=== PATIENT | female | born 1945 | race Caucasian/White ===

== ENCOUNTER → 2017-09-01 | Outpatient (CLI) | payer MEDICARE, OTHER ==
[~2017-09-01] MED LIST: ALEN70TA42 PO; ASTELIN; ATR10 PO; AUG250L PO; AZEL137S8 NS; CALC-965 PO; CALC3.7S6 NS; CALC600T72 PO; CELE-1 PO; CELE50CA2 PO; CHOL500026 PO; CIPR-326 PO; DENOSUMAB 60 MG/1 ML SYR SUBQ ONE; DIA5 PO; DOC100 PO; ESCI20TA38 PO; ESCI5TAB10 PO; EZE10 PO; FLUT16SP20 NS; GAB300 PO; HYD2 PO; HYDR2TAB4 PO; INDO50CA92 PO; LANS30CA70 PO; LANS30TA12 PO; LEV125 PO; LEVO125T77 PO; LEVO150T72 PO; LIO5 PO; LOM PO; LOR5 PO; LOR5/325 PO; MULT1CAP41 PO; NIAC500C17 PO; ONDA4TAB PO; OXY10 PO; PAN20 PO; PRILOSEC; PYPLUS PO; SIMV-42 PO; TROS20TA5 PO; UBID30CA PO; VIT-7 PO; VITA-131 PO; ZOCOR; [UNRECOGNIZED DRUG - OTHER]; [UNRECOGNIZED DRUG - REMARK]
[2017-09-01 11:04] VITALS: BP 97/73
== END ==
LOC: SPU 07:40
PROVIDERS: ATTEND Family Medicine
DX: M81.0 Age-related osteoporosis without current pathological fracture (principal)
CPT/HCPCS: 96372; J0897

== ENCOUNTER → 2017-12-28 | Outpatient (CLI) | payer MEDICARE, OTHER ==
[~2017-12-28] MED LIST changes: -DENOSUMAB 60 MG/1 ML SYR SUBQ ONE
--- NOTE | 2017-12-28 12:40 | RADIOLOGY IMAGING REPORT ---
FACILITY: [facility] - [place] PATIENT NAME: Veronique Vanegas : 1945 MR: [id number] V: [id number] EXAM DATE: ORDERING PHYSICIAN: ARNOLD FAGAN TECHNOLOGIST: [facility] Patient: Veronique Vanegas : 1945 Visit/Account:[id number] Date of Sevice: 12/28/2017 DEXA Scan Clinical history: Osteopenia. Comparison: DEXA scan from DEXA scan 12/21/2015. HIP: Bone mineral density (BMD) measured in the Left femoral neck region correlates with a Z-score 0.6 and a T-score of -1.3 which is osteopenia as defined by the World Health Organization. The correspondin g risk of fracture in the hip is increased compared with a young adult reference population. This tot al hip value has increased by 2.5 % since the prior study. More than 5% change is considered signifi cant. Bone mineral density (BMD) measured in the Femoral Neck region measures 0.863 g/cm2. FOREARM: The bone mineral density (BMD) measured in the ULTRADISTAL left forearm, where trabecular bone predom inates, correlates with a Z-score -0.2 and a T-score of -2.1 which is osteopenia as defined by the Wo rld Health Organization. The corresponding risk of fracture in the distal forearm is increased vinnie red with a young adult reference population. This value has increased by 3.4 % since the prior study . More than 5% change is considered significant. The bone mineral density (BMD) in the MIDSHAFT of the forearm, where cortical bone predominates, rob elates with a Z-score -0.6 and a T-score of -2.4 which is osteopenia as defined by the World Health O rganization. The corresponding risk of fracture in the midshaft of the forearm is increased compared with a young adult reference population. IMPRESSION: 1. Left Hip: Osteopenia. There has been increase in the total hip bone mineral density since the pr evious exam. 2. Femoral Neck: Bone Mineral Density is 0.863 g/cm2 3. Left Forearm: Osteopenia. There has been increased in the bone mineral density since the previo us exam The next DEXA scan of this patient should include the following sites: L1-L4 and the left forearm. FRAX? WHO Fracture Risk Assessment Tool link: <http://www.shef.ac.uk/FRAX/tool.jsp?locationValue=9> PLEASE NOTE: 1) The World Health Organization defines low BMD as follows: T-score Normal > -1 Osteopenia < -1 and > -2.5 Osteoporosis < -2.5 without fractures Established osteoporosis < -2.5 with fractures 2) In general, you may wish to consider: Diagnosis Treatment Follow-up DEXA Normal BMD Prevention 2-3 years Osteopenia Prevention/therapy 1-2 years Osteoporosis Therapy Yearly 3) Fracture risk estimated from the T-score is more accurate for vertebral fractures (often spontane ous) than for hip fractures. Report Dictated By: Chucho Sheth at 12/28/2017 12:32 PM Report E-Signed By: Chucho Sheth at 12/28/2017 12:35 PM WSN:[id number]
== END ==
LOC: RAD 01:19
PROVIDERS: ATTEND Family Medicine
DX: Z13.820 Encounter for screening for osteoporosis (principal); M85.89 Other specified disorders of bone density and structure, multiple sites
CPT/HCPCS: 77080

== ENCOUNTER → 2018-03-02 | Outpatient (CLI) | payer MEDICARE, OTHER ==
[~2018-03-02] MED LIST changes: +DENOSUMAB 60 MG/1 ML SYR SUBQ ONE; +INDO-23 PO; -INDO50CA92 PO
== END ==
LOC: SPU 08:14
PROVIDERS: ATTEND Family Medicine
DX: M81.0 Age-related osteoporosis without current pathological fracture (principal)
CPT/HCPCS: 96372; J0897

== ENCOUNTER → 2018-06-04 | Outpatient (CLI) | payer MEDICARE, OTHER ==
[~2018-06-04] MED LIST changes: -DENOSUMAB 60 MG/1 ML SYR SUBQ ONE
--- NOTE | 2018-06-05 08:10 | RADIOLOGY IMAGING REPORT ---
FACILITY: [facility] [place] PATIENT NAME: CHANA SWIFT : [id number] MR: [id number] V: [id number] EXAM DATE: [id number] ORDERING PHYSICIAN: ARNOLD FAGAN TECHNOLOGIST: Naomi Shine PROCEDURE:BILATERAL DIGITAL SCREENING MAMMOGRAM WITH CAD ASSISTED INTERPRETATION & 3D TOMOSYNTHESIS COMPARISON:Prior mammograms 06/01/17, 05/23/16, 09/04/15, 06/04/15, 05/20/15, 05/19/14. INDICATIONS:screening FINDINGS: Dense heterogeneous fibroglandular tissue is seen throughout the breasts. The parenchymal pattern has remained stable allowing for difference in mammographic technique & patient positioning. There is no evidence of malignant appearing mass, malignant appearing calcifications or other secondary sign of malignancy in either breast. DIAGNOSTIC CATEGORY 1--NEGATIVE. RECOMMENDATIONS: ROUTINE MAMMOGRAM AND CLINICAL EVALUATION. IMPRESSION: BIRADS 1: Negative. No significant abnormality is seen. Dictated by: Latisha Mccoy M.D. on 06/04/2018 at 17:45 Transcribed by: IGNACIO on 06/05/2018 at 8:02 Approved by: Latisha Mccoy M.D. on 06/05/2018 at 8:09 [facility]
== END ==
LOC: MAMO 01:16
PROVIDERS: ATTEND Family Medicine
DX: Z12.31 Encounter for screening mammogram for malignant neoplasm of breast (principal)
CPT/HCPCS: 77063; 77067

== ENCOUNTER 2018-08-11 09:37 | Emergency (ER) | payer MEDICARE, OTHER ==
[2018-08-11] MEDS ORDERED: ACETAMINOPHEN 325 MG TAB PO ONE (10:00)
[2018-08-11] MEDS ORDERED: CLINDAMYCIN 600 MG/4 ML 600 MG in NS(*) 0.9% 100 ML BAG 100 ML IVPB ONE (10:00)
[2018-08-11] MEDS ORDERED: CLINDAMYCIN(*) 600 MG/NS 50 ML 50 ML IVPB ONE (10:10)
[2018-08-11 10:24] LABS: PLATELET COUNT, AUTOMATED 250 K/uL (150-450)
--- NOTE | 2018-08-11 10:24 | ER Report ---
History and Physical Time Seen By MD: 09:45 Hx. of Stated Complaint: REDNESS, SWELLING AND PAIN TO RIGHT THUMB HPI/ROS CHIEF COMPLAINT: thumb pain, swelling HISTORY OF PRESENT ILLNESS: Pt is r hand dominant female who presents with r thumb redness, swelling, now sreaking up arm. Has been ongoing for 2 d. Pt has no known recent injuries though does have callus centrally located at area of swelling; per pt she is not aware of any recent breaks in skin. She has pain throughout thumb that is moderate, extending up radial forearm. Notes chills, mild nausea. Denies archibald, arm pain, cp, sob, vomiting, abd pain, or other kendell n/injury. No recent abx. REVIEW OF SYSTEMS: Constitutional: above Eyes: No discharge. ENT: No sore throat. Cardiovascular: No chest pain, no palpitations. Respiratory: No cough, no shortness of breath. Gastrointestinal: No abdominal pain, no vomiting. Genitourinary: no dysuria, change in color of urine Musculoskeletal: No back pain. Skin: above Neurological: No headache. Remainder of the 14 system rev: Yes Allergies: Coded Allergies: metronidazole (Verified Allergy, Mild, RASH AND ITCHING, 02/16/15) adhesive tape (Verified Allergy, Unknown, ITCHING, 02/16/15) Uncoded Allergies: HAYFEVER (Allergy, Unknown, 12/19/14) Home Meds Active Scripts Clindamycin Hcl (CLINDAMYCIN HCL) 300 Mg Capsule, 300 MG PO Q6H for 7 Days, #28 CAPSULE Prov:THEODORE HESS MD 08/11/18 Reported Medications Vit A,C & E/Lutein/Minerals (OCUVITE TABLET) 1 Each Tablet, 1 EACH PO QDAY 12/29/15 Levothyroxine Sodium (SYNTHROID) 125 Mcg Tablet, 125 MCG PO DIRECTED 12/29/15 Ubidecarenone (CO Q-10) 30 Mg Capsule, PO DAILY, CAPSULE 02/16/15 Vitamin B Complex (VITAMIN B COMPLEX) 1 Each Tablet, 1 EACH PO DAILY 02/16/15 Lansoprazole (PREVACID) 30 Mg Tab.rap.dr, 30 MG PO QDAY 02/16/15 Escitalopram Oxalate (LEXAPRO) 20 Mg Tablet, 10-20 MG PO QDAY 02/16/15 Cholecalciferol (Vitamin D) 5,000 Unit Tablet, 21704 UNIT PO DAILY 08/27/12 Calcium Carbonate/Vitamin D3 (CALCIUM 1,000 + D3 CAPLET) 1 Each Tablet, 1 EACH PO DAILY 08/27/12 Niacin/Inositol Niacinate (Niacin 500 Mg Capsule) 1 Each Capsule, 1 EACH PO BID 08/27/12 Atorvastatin (Lipitor) 10 Mg Tab, 10 MG PO QHS 08/27/12 Liothyronine Sodium (Cytomel) 5 Mcg Tab, 5 MCG PO DAILY 05/31/12 Hx Smoking: Yes (QUIT 30 YRS AGO) Smoking Status: Former Smoker Exposure to Second Hand Smoke?: No Hx Substance Use Disorder: No Hx Alcohol Use: No Constitutional Vital Sign - Last 24 Hours 08/11/18 08/11/18 08/11/18 08/11/18 09:37 09:40 09:40 09:52 Temp 98.0 Pulse ??? 78 77 Resp 18 B/P (MAP) 102/76 (85) 102/76 Pulse Ox 93 94 O2 Delivery Room Air 08/11/18 08/11/18 08/11/18 08/11/18 10:00 10:07 10:22 10:37 Pulse 86 76 ??? B/P (MAP) 93/69 (77) Pulse Ox 95 95 08/11/18 08/11/18 08/11/18 08/11/18 10:38 10:52 11:00 11:07 Pulse 79 ??? B/P (MAP) 98/64 (75) 116/82 (93) Pulse Ox 93 08/11/18 08/11/18 11:22 11:30 Pulse ??? B/P (MAP) ???/??? (7725) Physical Exam General Appearance: The patient is alert, has no immediate need for airway protection and no signs of toxicity. Eyes: Pupils equal and round no pallor or injection. ENT, Mouth: Mucous membranes are moist. Respiratory: There are no retractions, lungs are clear to auscultation. Cardiovascular: Regular rate and rhythm. Neurological: alert, moves all ext Skin: r thumb erythema primarily ulnar and dorsal aspect, with 1cm central induration and possible fluctuance, at level of mcp and extending to distal phalanx. Lymphangitic streaking extending up forearm to 2cm below ac fossa. Area marked. No pain with axial loading though pt does have pain with passive flexion of MCP. No wrist pain. Musculoskeletal: Other than above, Extremities are nontender, nonswollen and have full range of motion. DIFFERENTIAL DIAGNOSIS: After history and physical exam differential diagnosis was considered for cellultiis, abscess, septic arthritis, bacteremia. Medical Decision Making Data Points Result Diagram: 08/11/18 1015 08/11/18 1015 Laboratory Hematology Test 08/11/18 10:15 Red Blood Count 4.35 M/uL (4.17-5.56) Mean Corpuscular Volume 98.3 fL (80.0-96.0) Mean Corpuscular Hemoglobin 33.0 pg (26.0-33.0) Mean Corpuscular Hemoglobin Concent 33.6 g/dL (32.0-36.0) Red Cell Distribution Width 13.4 % (11.5-14.5) Mean Platelet Volume 6.8 fL (7.2-11.1) Neutrophils (%) (Auto) 77.2 % (39.4-72.5) Lymphocytes (%) (Auto) 12.2 % (17.6-49.6) Monocytes (%) (Auto) 8.8 % (4.1-12.4) Eosinophils (%) (Auto) 1.3 % (0.4-6.7) Basophils (%) (Auto) 0.5 % (0.3-1.4) Nucleated RBC Relative Count (auto) 0.0 /100WBC Neutrophils # (Auto) 8.3 K/uL (2.0-7.4) Lymphocytes # (Auto) 1.3 K/uL (1.3-3.6) Monocytes # (Auto) 0.9 K/uL (0.3-1.0) Eosinophils # (Auto) 0.1 K/uL (0.0-0.5) Basophils # (Auto) 0.0 K/uL (0.0-0.1) Nucleated RBC Absolute Count (auto) 0.00 K/uL Sodium Level 136 mmol/L (137-145) Potassium Level 4.2 mmol/L (3.5-5.0) Chloride Level 110 mmol/L (98-107) Carbon Dioxide Level 21 mmol/L (22-31) Blood Urea Nitrogen 12 mg/dl (7-18) Creatinine 0.80 mg/dl (0.52-1.04) Glomerular Filtration Rate Calc > 60.0 Random Glucose 78 mg/dl (75-110) Calcium Level 8.6 mg/dl (8.4-10.2) Chemistry Test 08/11/18 10:15 White Blood Count 10.7 k/uL (4.5-11.0) Red Blood Count 4.35 M/uL (4.17-5.56) Hemoglobin 14.4 g/dL (12.0-16.0) Hematocrit 42.8 % (34.0-47.0) Mean Corpuscular Volume 98.3 fL (80.0-96.0) Mean Corpuscular Hemoglobin 33.0 pg (26.0-33.0) Mean Corpuscular Hemoglobin Concent 33.6 g/dL (32.0-36.0) Red Cell Distribution Width 13.4 % (11.5-14.5) Platelet Count 250 K/uL (150-450) Mean Platelet Volume 6.8 fL (7.2-11.1) Neutrophils (%) (Auto) 77.2 % (39.4-72.5) Lymphocytes (%) (Auto) 12.2 % (17.6-49.6) Monocytes (%) (Auto) 8.8 % (4.1-12.4) Eosinophils (%) (Auto) 1.3 % (0.4-6.7) Basophils (%) (Auto) 0.5 % (0.3-1.4) Nucleated RBC Relative Count (auto) 0.0 /100WBC Neutrophils # (Auto) 8.3 K/uL (2.0-7.4) Lymphocytes # (Auto) 1.3 K/uL (1.3-3.6) Monocytes # (Auto) 0.9 K/uL (0.3-1.0) Eosinophils # (Auto) 0.1 K/uL (0.0-0.5) Basophils # (Auto) 0.0 K/uL (0.0-0.1) Nucleated RBC Absolute Count (auto) 0.00 K/uL Glomerular Filtration Rate Calc > 60.0 Calcium Level 8.6 mg/dl (8.4-10.2) Microbiology Microbiology Date/Time Source Procedure Growth Status 08/11/18 10:36 Blood Peripheral Draw Blood Culture - Preliminary NO GROWTH AFTER 1 DAY, REINCUBATED Resulted 08/11/18 00:00 Blood Peripheral Draw Blood Culture - Preliminary NO GROWTH AFTER 1 DAY, REINCUBATED Resulted ED Course/Re-evaluation ED Course Pt presents with thumb swelling, erythema, with streaking c/w cellultiis without e/o joint involvement. I performed bedside US to r/o abscess; no e/o abscess. After initial iv abx, pts cellulitis shows signs of improvement. At this point, reasonable for d/c with SRP's. Decision to Disposition Date: Aug 11, 2018 Decision to Disposition Time: 11:15 Depart Departure Latest Vital Signs Vital Signs Date Time Temp Pulse Resp B/P (MAP) Pulse Ox O2 Delivery O2 Flow Rate FiO2 08/11/18 11:30 ???/??? (1665) 08/11/18 11:22 ??? 08/11/18 10:52 93 08/11/18 09:40 98.0 18 Room Air Impression: Primary Impression: Cellulitis Condition: Improved Disposition: HOME OR SELF-CARE Referrals: ARNOLD FAGAN DO (PCP) 5 Days New Scripts Clindamycin Hcl (CLINDAMYCIN HCL) 300 Mg Capsule 300 MG PO Q6H for 7 Days, #28 CAPSULE Prov: THEODORE HESS MD 08/11/18 Patient Instructions: Cellulitis (ED) Additional Instructions: As we discussed, return for worsening symptoms, increased pain with movement of joint, or any concerns. If you have reaction to clindamycin, including multiple episodes of diarrhea, please stop taking medication and return immediately. You may take ibuprofen 400-600mg every 8 hours, tylenol 650mg every 6 hours, and use ice up to 20 min at a time for pain. Problem Qualifiers Primary Impression: Cellulitis Site of cellulitis: extremity Site of cellulitis of extremity: finger Laterality: right Qualified Codes: L03.011 - Cellulitis of right finger THEODORE HESS MD Aug 11, 2018 10:24
--- NOTE | 2018-08-11 11:15 | RADIOLOGY IMAGING REPORT ---
FACILITY: [facility] PATIENT NAME: Veronique Vanegas : 1945 MR: [id number] V: [id number] EXAM DATE: ORDERING PHYSICIAN: THEODORE HESS TECHNOLOGIST: Location: [facility] - [place] Patient: Veronique Vanegas : 1945 Visit/Account:[id number] Date of Sevice: 08/11/2018 Technique: FINGER RIGHT THUMB HISTORY: cellulitis, ttp thumb mcp Comparison studies: None FINDINGS: There is no acute fracture. Marginal osteophytosis is noted at the first interphalangeal william int as well as the first MCP joint. No acute subluxation or dislocation. Soft tissue swelling surroun ds the first digit. IMPRESSION: 1. No acute osseous process. 2. Degenerative changes involving the first interphalangeal joint and first MCP joint. Report Dictated By: Uriel Lee DO at 08/11/2018 11:08 AM Report E-Signed By: Uriel Lee DO at 08/11/2018 11:11 AM WSN:[id number]
[2018-08-11] MEDS ORDERED: CLIN300C99 PO (11:17)
== END 2018-08-11 11:23 | disposition home or self-care (01) ==
LOC: ER 09:50
DX: L03.011 Cellulitis of right finger (principal)
CPT/HCPCS: 73140; 85025; 87040; 96365; 99283; A9270; J3490; 82310; 82374; 82435; 82565; 82947; 84132; 84295; 84520

== ENCOUNTER 2018-08-28 00:37 | Day surgery (SDC) | payer MEDICARE, OTHER ==
[~2018-08-28] VITALS: Ht 170.2 cm; Wt 55.3 kg
[2018-08-28] VITALS (9 sets, daily range): BP systolic 76–110; BP diastolic 51–71
[~2018-08-28 00:37] MED LIST changes: +CLIN300C99 PO; +CRAN250T PO; +TURM500C4 PO
[2018-08-28] MEDS ORDERED: CELECOXIB 200 MG CAP PO ONE (06:00)
[2018-08-28] MEDS ORDERED: MIDAZOLAM 2 MG/2 ML VIAL IVP PRN (06:00)
[2018-08-28] MEDS ORDERED: LIDOCAINE/SOD BICARB 8.4% SYR ID ONE (06:00)
[2018-08-28] MEDS ORDERED: ceFAZolin(*) 1 GM VIAL 1 GM in NS(*) 0.9% 100 ML ADDVANT BAG 100 ML IVPB ONE (06:00)
[2018-08-28] MEDS ORDERED: FAMOTIDINE 20 MG TAB PO ONE (06:00)
[2018-08-28] MEDS ORDERED: NORMOSOL R SOLN(*) 1000 ML BAG 1,000 ML IV PRN (06:00)
[2018-08-28] MEDS ORDERED: ROPIVACAINE 0.2% 20 ML VIAL ONE (06:24)
[2018-08-28] MEDS ORDERED: fentaNYL CITR 100 MCG/2 ML AMP ONE (06:36)
[2018-08-28] MEDS ORDERED: LIDOCAINE 1%MDV(*)200 MG/20 ML 1 ML ONE (06:54)
[2018-08-28] MEDS ORDERED: LIDOCAINE MPF 1% 5 ML VIAL ONE (07:03)
[2018-08-28] MEDS ORDERED: PROPOFOL EMUL(*) 10MG/ML 20 ML 40 ML ONE (07:03)
[2018-08-28] MEDS ORDERED: ONDANSETRON 4 MG/2 ML VIAL ONE (07:03)
--- NOTE | 2018-08-28 07:38 | NUR ---
0738- PT BROUGHT TO [place] [facility] FROM OR, PT IN SF POSITION, DROWSY, VSS, KEEGAN AT BEDSIDE, SBAR REPORT FROM DR. THOMAS AND Valente MCGINNIS RN, PT HAS [place] WRAP BANDAGE TO RIGHT HAND, CAP REFILL WNL, PT HAS NON REBREATHER ON AT 8LPM, PT MAINTAINING SATS, RESPIRATIONS AND AIRWAY 0743- DECREASED O2 TO 5LPM VIA NON REBREATHER, PT REMAINS DROWSY 0746- DECREASED O2 TO 3LPM VIA NON REBREATHER 0751- PT MORE AWAKE, PLACED ON RA
--- NOTE | 2018-08-28 07:56 | NUR ---
0756- PT MORE ALERT, GLASSES ON, TOLERATING COFFEE
[2018-08-28] MEDS ORDERED: HYDR-653 PO (08:01)
--- NOTE | 2018-08-28 08:11 | NUR ---
0811- [facility], EDUCATED PT ON DEEP BREATHING AND COUGHING, PT REPORTS NUMBNESS IN RIGHT HAND, DENIES PAIN AT THIS TIME
--- NOTE | 2018-08-28 08:20 | NUR ---
0820- INCREASE IV FLUIDS, D/T LOW BP, PT DENIES FEELING LIGHT HEADED, SEE VS CHART, REVIEWED D/C INSTRUCTIONS WITH PT AND
--- NOTE | 2018-08-28 08:45 | NUR ---
0845- VSS, PT DENIES DIZZINESS OR LIGHTHEADEDNESS, UP TO RESTROOM, AMBULATORY, STABLE GAIT NOTED
--- NOTE | 2018-08-28 08:51 | NUR ---
0851- D/C IV WITH CATH INTACT, PRESSURE DRESSING APPLIED WITH GAUZE AND VIC 0855- PT AMBULATORY TO [facility], ACCOMPANIED BY RADHA MICHELLE AND KEEGAN
--- NOTE | 2018-08-28 14:40 | OPERATIVE REPORT 1 ---
EVENT DATE: August 28, 2018 SURGEON: Matt Cedillo MD ANESTHESIOLOGIST: Colt Varghese MD ANESTHESIA: MAC plus local. SOCIAL MEDIA JOB TITLES: Sterling Aguilera PA-C PREOPERATIVE DIAGNOSIS Right thumb metacarpophalangeal joint infection with granulomatous tissue. 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 PROCEDURE PERFORMED Irrigation and debridement of the right thumb metacarpophalangeal joint with removal of granulomatous infected tissue over the top. FINDINGS Patient had a large granuloma of infected tissue, but no other signs of problems and some arthritic changes in the MCP joint. ESTIMATED BLOOD LOSS Minimal. DRAINS None. COMPLICATIONS None. IMPLANTS USED None. SPECIMENS Granulomatous tissue which was sent off for culture. TOURNIQUET TIME About 22 minutes. INDICATIONS AND HISTORY This patient is a 73-year-old female who presented to my clinic for evaluation of right thumb MCP joint irritation and infection going on for some time. She continued to have some pain and irritation associated with it, and it continued to give her some trouble. Despite doses of IV antibiotics as well as oral antibiotics, it still was continuing to give her issues, and so she wanted to have it irrigated and debrided today, 08/28/2018. The risks and benefits were discussed with the patient, and informed consent was obtained at the last clinic visit. She understands it may not guarantee complete relief. DESCRIPTION OF PROCEDURE As the patient was brought in the operating room, she and the procedure were both verified. She was placed supine on the operative table and given sedation by Anesthesia. We then put in a 2% lidocaine block into the area of the MCP joint and around the infection itself, and then the right arm was prepped and draped in the usual fashion. A timeout was observed verifying the correct patient and procedure. The standard incision was made in a curvilinear fashion along the ulnar aspect of the MCP joint of the thumb. I was able to go through the skin and subcutaneous tissue, and I identified the granulomatous tissue in this area. Once I was able to identify the granulomatous tissue in this area, I was then able to remove it en bloc without any difficulty. I identified the dorsal radial sensory nerve, and that was still intact, and left it in place. Once I removed the granulomatous tissue, it was sent for specimen. I then went into the MCP joint and was able to debride this area as there was a little bit of a connection to the granulomatous tissue, and I was able to debride the MCP joint with a curette and then copious amounts of saline with irrigation and was able to clean out this entire area. Once I was able to get rid of some of the synovitis and irritation, I then closed the joint with a 3-0 Vicryl in a running type fashion. This was then followed by a couple 3-0 Vicryl in the subcutaneous tissue and then 4-0 nylon in the skin in an interrupted simple suture fashion. The wound was dressed with Xeroform 4 x 4's and a soft dressing. The tourniquet was let down after about 22 minutes. The patient was awakened and transferred to PACU in stable condition. GUALBERTO
== END 2018-08-28 08:55 | disposition home or self-care (01) ==
LOC: OR 00:37
PROVIDERS: ATTEND Orthopaedic Surgery
DX: M00.9 Pyogenic arthritis, unspecified (principal)
CPT/HCPCS: 26115; 87070; 87073; 87176; 87205; A4565; A9270; J2001; J2405; J2704; J2795; J3010

== ENCOUNTER → 2019-02-26 | Outpatient (CLI) | payer MEDICARE, OTHER ==
[~2019-02-26] MED LIST changes: +DENOSUMAB 60 MG/1 ML SYR SUBQ ONE; +HYDR-653 PO
[2019-02-26 11:01] VITALS: BP 106/66
== END ==
LOC: SPU 08:18
PROVIDERS: ATTEND Family Medicine
DX: M81.0 Age-related osteoporosis without current pathological fracture (principal)
CPT/HCPCS: 96372; J0897